=== PATIENT | female | born 1995 | race Caucasian/White ===

== ENCOUNTER 2018-06-21 11:51 | Outpatient (REF) | payer BC, SELFPAY ==
--- NOTE | 2018-06-21 10:10 | PAPFT_PTH ---
PATIENT: Jailene Turner LOC: [facility] U#:[id number] AGE/SX: 22/F ROOM: RE06/21/[address]: OSVALDO Nascimento : 1995 BED: DIS: 06/21/2018 SPEC #: [id number] RECD: 06/21/18 13:17 STATUS: CHELO RELorenzo #: [id number] MANUEL: 06/21/18 10:[address]: Liz Diaz DEPT: [facility] Cytology RECD BY: Elaine Sky ENTERED: 06/21/18 13:17 SP TYPE: PAPFT WILLIAM DR: None Tissues: 1 - CX/ENDOCX FOR PAP SMEARS Procedures: PAP THIN PREP/[facility] Screening Comments: [id number]
[2018-06-22 14:27] LABS: Chlamydia Result Negative; GC Result Negative; Specimen Description CERVIX
== END 2018-06-21 12:11 ==
LOC: LBN 11:51
PROVIDERS: Visit Provider Nurse Practitioner Family
DX: Z11.3 Encounter for screening for infections with a predominantly sexual mode of transmission (principal); Z12.4 Encounter for screening for malignant neoplasm of cervix; Z11.51 Encounter for screening for human papillomavirus (HPV)
CPT/HCPCS: 87491; 87591; 88142

== ENCOUNTER 2022-01-09 14:56 | Outpatient (REF) | payer BC, SELFPAY ==
--- NOTE | 2022-01-09 14:15 | PAPFT_PTH ---
PATIENT: Jailene Turner LOC: [facility] U#:[id number] AGE/SX: 26/F ROOM: RE01/09/[address]: Essie Andre : 1995 BED: DIS: 01/09/2022 SPEC #: [id number] RECD: 01/09/22 18:25 STATUS: CHELO REQ #: [id number] MANUEL: 01/09/22 14:[address]: Essie Andre DEPT: [facility] Cytology RECD BY: Elaine Sky ENTERED: 01/09/22 18:25 SP TYPE: PAPFT WILLIAM DR: None Tissues: 1 - CX/ENDOCX FOR PAP SMEARS Procedures: PAP THIN PREP/[facility] Screening Comments: [id number]
== END 2022-01-09 14:57 | disposition home or self-care (01) ==
LOC: NCHCN 14:56
PROVIDERS: Visit Provider Physician Assistant
DX: Z12.4 Encounter for screening for malignant neoplasm of cervix (principal)
CPT/HCPCS: 88142

== ENCOUNTER 2023-01-27 13:40 | Outpatient (REF) | payer BC, SELFPAY ==
[2023-01-27 20:22] LABS: ALT 19 U/L (14-59); AST 16 U/L (15-37); Albumin 3.5 g/dL (3.4-5.0); Alkaline Phosphatase 72 U/L (46-116); Anion Gap 13.1 mmol/L (3-11); BUN 7 mg/dL (7-18); Bilirubin, Total 0.3 mg/dL (0.2-1.0); CO2 22.9 mmol/L (21.0-32.0); CREATININE 0.9 mg/dL (0.55-1.02); Calcium 9.1 mg/dL (8.5-10.1); Calculated LDL 76 mg/dL (<100); Chloride 104 mmol/L (98-107); Cholesterol 183 mg/dL (<200); Estimated GFR 90.42 (mL/min/1.73m2); Glucose 89 mg/dL (74-106); HDL Cholesterol 78 mg/dL (40-60); Potassium 3.6 mmol/L (3.5-5.1); Sodium 140 mmol/L (136-145); TSH (W/Ref FT4) 3.07 uIU/mL (0.36-3.74); Total Protein 6.8 g/dL (6.4-8.2); Triglyceride 145 mg/dL (<150)
== END 2023-01-27 13:41 | disposition home or self-care (01) ==
LOC: NCHCN 13:40
PROVIDERS: PCP Physician Assistant; Visit Provider Physician Assistant
DX: Z00.00 Encounter for general adult medical examination without abnormal findings (principal); Z13.220 Encounter for screening for lipoid disorders; F32.9 Major depressive disorder, single episode, unspecified; M31.30 Wegener's granulomatosis without renal involvement
CPT/HCPCS: 80053; 80061; 84443

== ENCOUNTER 2024-08-29 15:37 | Outpatient (REF) | payer BC, SELFPAY ==
--- NOTE | 2024-08-29 14:00 | PAPFT_PTH ---
PATIENT: Jailene Turner LOC: [facility] U#:[id number] AGE/SX: 28/F ROOM: RE08/29/[address]: Kentrell Camarena : 1995 BED: DIS: 08/29/2024 SPEC #: [id number] RECD: 08/30/24 12:45 STATUS: CHELO RELorenzo #: [id number] MANUEL: 08/29/24 14:[address]: Kentrell Camarena DEPT: [facility] Cytology RECD BY: Elaine Sky ENTERED: 08/30/24 12:45 SP TYPE: PAPFT OTHR DR: Essie Andre Tissues: 1 - CX/ENDOCX FOR PAP SMEARS Procedures: PAP THIN PREP/[facility] Screening Comments: [id number]
[2024-08-31 12:25] LABS: Chlamydia Result Negative (Negative); GC Result Negative (Negative)
== END 2024-08-29 15:38 | disposition home or self-care (01) ==
LOC: NCHCN 15:37
PROVIDERS: PCP Physician Assistant; Visit Provider Internal Medicine
DX: Z12.4 Encounter for screening for malignant neoplasm of cervix (principal); Z11.3 Encounter for screening for infections with a predominantly sexual mode of transmission
CPT/HCPCS: 87491; 87591; 88142

== ENCOUNTER 2024-11-24 17:20 | Outpatient (REF) | payer MEDICAID, SELFPAY ==
[2024-11-24 19:05] LABS: HCT 40.0 % (36.0-46.0); HGB 13.7 g/dL (11.2-15.7); MCH 29.1 pg (27.0-33.0); MCHC 34.3 % (32.0-36.0); MCV 85 fL (80-95); MPV 10.6 fL (8.0-11.0); Platelet Count 232 10^3/uL (130-400); RBC 4.70 10^6/uL (3.93-5.22); RDW 12.7 % (11.7-14.6); RDW-SD 39.7 fL; WBC 6.47 10^3/uL (4.4-10.8)
[2024-11-24 19:34] LABS: Calculated LDL 135 mg/dL (<100); Cholesterol 251 mg/dL (<200); HDL Cholesterol 70 mg/dL (>or=50); TSH 1.06 uIU/mL (0.36-3.74); Triglyceride 231 mg/dL (<150)
[2024-11-25 22:22] LABS: Hepatitis C Ab w Rflx HCV PCR Negative (Negative)
[2024-11-25 22:23] LABS: HIV-1/2 Ag & Ab Screen Negative (Negative)
[2024-11-28 12:06] LABS: Chlamydia Result Negative (Negative); GC Result Negative (Negative)
== END 2024-11-24 17:21 | disposition home or self-care (01) ==
LOC: NCHCN 17:20
PROVIDERS: PCP Physician Assistant; Visit Provider Internal Medicine
DX: Z11.3 Encounter for screening for infections with a predominantly sexual mode of transmission (principal); E04.2 Nontoxic multinodular goiter; D64.9 Anemia, unspecified; Z13.220 Encounter for screening for lipoid disorders; Z11.4 Encounter for screening for human immunodeficiency virus [HIV]
CPT/HCPCS: 80061; 85027; 86803; 87389; 87491; 87591; 84439; 84443